=== PATIENT | female | born 1955 | race Caucasian/White ===

== ENCOUNTER 2017-06-27 14:35 | Emergency (ER) | payer OTHER ==
[~2017-06-27] VITALS: Ht 160 cm; Wt 52.6 kg
[~2017-06-27 14:35] MED LIST: IBUP-974 PO
[2017-06-27 14:41] VITALS: BP 142/97
--- NOTE | 2017-06-27 14:48 | NUR ---
PT AMBULATED TO CHAIR A WITH FAMILY.
--- NOTE | 2017-06-27 14:49 | NUR ---
61/F BIB FAMILY W/ C/O RIGHT FACIAL DROOP X 5 DAYS---DENIES HEADACHE, NO INJURY FACIAL ASYMMETRY, FOREHEAD WRINKLE ASYMMETRIC, TONGUE MIDLINE, AMBULATORY WITH STEADY GAIT, EQUAL LIBERAL ARTS AND HUMANITIES CHAIR/PUSHES BUE. PT STATES HX OF BACK PAIN, HTN RX WITH WATER PILL ?, ASA, FOSAMAX DENIES N/V/D; DENIES BLURRY VISION SKIN IS PINK/WARM/DRY; AAOX4 WITH EVEN AND STEADY GAIT; LUNGS CLEAR BL; HR EVEN AND REGULAR; PT DENIES ANY FEVER, CP, SOB, OR COUGH AT THIS TIME; PATIENT STATES PAIN OF 0/10 AT THIS TIME.
--- NOTE | 2017-06-27 14:50 | NUR ---
Patient being evaluated by dR. SABA at [facility].
--- NOTE | 2017-06-27 15:11 | NUR ---
PT TAKEN TO CT FOR CT HEAD IN WHEEL CHAIR BY NEUROLOGY HOSPITALIST.
--- NOTE | 2017-06-27 15:22 | NUR ---
PT CAME BACK FROM CT. SITTING IN CHAIR.
--- NOTE | 2017-06-27 15:29 | NUR ---
PT REQUESTED FOR WATER. NOTIFIED MD SABA. OKAY TO GIVE WATER. PT ABLE TO DRINK WATER WITHOUT ASPIRATION. FRIEND WITH PT.
[2017-06-27] MEDS ORDERED: predniSONE 20 MG TAB PO ONE (15:40)
[2017-06-27 15:48] VITALS: BP 132/88
--- NOTE | 2017-06-27 15:48 | NUR ---
Patient discharged with BP 132/88 ;DENIES AGARWAL OR DIZINESS AT THIS TIME; MADE AWARE. Written and verbal after care instructions given and explained. Patient alert, oriented and verbalized understanding of instructions. Ambulatory with steady gait. All questions addressed prior to discharge. ID band removed. Patient advised to follow up with PMD. Rx of PREDNISONE given. Patient educated on indication of medication including possible reaction and side effects. Opportunity to ask questions provided and answered.
== END 2017-06-27 15:48 | disposition home or self-care (01) ==
LOC: MED 14:35
DX: G51.0 Bell's palsy (principal); F17.210 Nicotine dependence, cigarettes, uncomplicated; Z71.6 Tobacco abuse counseling; I10 Essential (primary) hypertension; Z88.0 Allergy status to penicillin
CPT/HCPCS: 70450; 99284; J7512

== ENCOUNTER 2018-10-22 17:40 | Emergency (ER) | payer OTHER ==
[~2018-10-22] VITALS: Ht 162.6 cm; Wt 55.1 kg
[2018-10-22 17:52] VITALS: BP 125/73
--- NOTE | 2018-10-22 17:59 | NUR ---
WAIT AT [facility]. S. AAOX4.
--- NOTE | 2018-10-22 18:05 | NUR ---
Patient taken to XRAY via wheelchair by tech.
--- NOTE | 2018-10-22 18:48 | NUR ---
PT AMBULATED TO BED 11.
--- NOTE | 2018-10-22 18:53 | NUR ---
BIB FRIEND c/o lac wound right hand s/p cut by a piece of glass. BLEEDING CONTROLLED. LAST TDAP 2 YEARS AGO. med hx: HTN, HIGH CHOLESTEROL.PATIENT POSITIONED FOR COMFORT; HOB ELEVATED; BEDRAILS UP X1; BED DOWN. ER MD MADE AWARE OF PT STATUS.
--- NOTE | 2018-10-22 19:13 | NUR ---
Assumed care of pt. VSS. pt complaining of throbbing pain level 9/10 with controlled bleeding to laceration on right pinky. ERMD notified.
--- NOTE | 2018-10-22 19:26 | NUR ---
ERMD AT BEDSIDE
[2018-10-22] MEDS ORDERED: LIDOCAINE 1% 500 MG/50 ML VIAL INJ SCH (19:35)
[2018-10-22] MEDS ORDERED: KETOROLAC 60 MG/2 ML VIAL IM ONE (19:35)
[2018-10-22] MEDS ORDERED: LIDOCAINE MPF 1% 5mL VIAL INJ ONE ×2 (19:40)
[2018-10-22] MEDS ORDERED: LIDOCAINE MPF 1% - 5 mL VIAL 10 ML ONE (19:50)
[2018-10-22] MEDS ORDERED: NEOMYCIN/POLYMYXIN/BACITRACIN 0.9 GM/1 PKT TP ONE (20:15)
--- NOTE | 2018-10-22 20:25 | NUR ---
BACITRACIN AND A NON ADHESIVE GAUZE PAD WAS PLACED ON PTS WOUND ON HER LEFT HAND AND THEN WRAPPED IN A ROLL GAUZE
--- NOTE | 2018-10-22 20:25 | NUR ---
Patient discharged with v/s stable. Written and verbal after care instructions given and explained. Patient alert, oriented and verbalized understanding of instructions. Ambulatory with steady gait. All questions addressed prior to discharge. ID band removed. Patient advised to follow up with PMD. Rx of Bactrim and motrin given. Patient educated on indication of medication including possible reaction and side effects. Opportunity to ask questions provided and answered.
== END 2018-10-22 20:25 | disposition home or self-care (01) ==
LOC: MED 17:40
DX: S61.411A Laceration without foreign body of right hand, initial encounter (principal); I10 Essential (primary) hypertension; E78.00 Pure hypercholesterolemia, unspecified; Z88.0 Allergy status to penicillin; Z79.1 Long term (current) use of non-steroidal anti-inflammatories (NSAID); W25.XXXA Contact with sharp glass, initial encounter; Y93.89 Activity, other specified; Y92.090 Kitchen in other non-institutional residence as the place of occurrence of the external cause; Y99.8 Other external cause status
CPT/HCPCS: 12001; 73130; 96372; 99284; J1885; J2001

== ENCOUNTER 2020-08-26 16:06 | Emergency (ER) | payer OTHER ==
[~2020-08-26] VITALS: Ht 154.9 cm; Wt 55.3 kg
[2020-08-26 16:09] VITALS: BP 156/84
--- NOTE | 2020-08-26 16:15 | NUR ---
PT AMBULATED TO BED 11.
--- NOTE | 2020-08-26 16:20 | NUR ---
65 Y/O F BIB FROM HOME, C/O BILATERAL HAND PAIN, BURNING SENSATION FOR 1 MO THAT IS NOW RADIATING TO HER TOES. UNABLE TO FLEX OR EXTEND HAND OR DIGITS DUE TO PAIN. PT STATES SHE WAS AT [facility] FOR THE SAME REASON AND LEFT AMA BECAUSE THEY TOOK HOURS. PT STATES SHE HAS 10/10 PAIN, WTIH SWELLING AND REDNESS. TOOK EXCEDRIN 2 TAB PO IN THE AM AND ALEVE 2 PO THIS AFTERNOON. PT A&OX4 AMBULATES WITH STEADY GAIT. DENIES COUGH, SOB, FEVERS, CHEST PAIN, N/V/D. PMH: HTN ALLERGY: PENICILLIN (SWELLING IN THE THROAT)
[2020-08-26] MEDS ORDERED: GABA-636 PO (17:14)
[2020-08-26] MEDS: GABAPENTIN 300 MG CAP PO ONE (17:18)
[2020-08-26 17:26] LABS: BASOPHILS # (AUTO) 0.1 K/uL (0.00-0.22); BASOPHILS % (AUTO) 1.1 % (0.0-2.0); EOSINOPHILS # (AUTO) 0.1 K/uL (0-0.4); EOSINOPHILS % (AUTO) 1.2 % (0.0-4.0); HEMATOCRIT 41.5 % (36-48); HEMOGLOBIN 13.8 g/dL (12.0-16.0); LYMPHOCYTES # (AUTO) 4.5 K/uL (2.5-16.5); LYMPHOCYTES % (AUTO) 49.8 % (20.5-51.1); MEAN CORPUSCULAR HEMOGLOBIN 44 pg (27-31); MEAN CORPUSCULAR HGB CONC 33 g/dL (33-37); MEAN CORPUSCULAR VOLUME 133.3 fL (80-94); MONOCYTES # (AUTO) 0.5 K/uL (0.8-1.0); MONOCYTES % (AUTO) 5.5 % (1.7-9.3); NEUTROPHILS # (AUTO) 3.9 K/uL (1.8-7.7); NEUTROPHILS % (AUTO) 42.4 % (42.2-75.2); PLATELET COUNT (AUTO) 633 K/uL (140-450); RED BLOOD CELL COUNT(AUTO) 3.11 MIL/uL (4.20-5.40); RED CELL DISTRIBUTION WIDTH 17.1 % (11.6-13.7); WHITE BLOOD COUNT (AUTO) 9.1 K/uL (4.8-10.8)
[2020-08-26 17:40] LABS: CARBON DIOXIDE 24.3 mmol/L (21-32); CREATININE 0.5 mg/dL (0.6-1.3); POTASSIUM 3.3 mmol/L (3.5-5.1)
[2020-08-26] MEDS ORDERED: THIA50TA39 PO ×2 (18:26→18:44)
[2020-08-26 18:41] VITALS: BP 156/84
--- NOTE | 2020-08-26 18:41 | NUR ---
Patient discharged with v/s stable. Written and verbal after care instructions given and explained. Patient alert, oriented and verbalized understanding of instructions. Ambulatory with steady gait. All questions addressed prior to discharge. ID band removed. Patient advised to follow up with PMD. Rx of GABAPENTIN, THIAMINE HCL given. Patient educated on indication of medication including possible reaction and side effects. Opportunity to ask questions provided and answered.
== END 2020-08-26 18:41 | disposition home or self-care (01) ==
LOC: MED 16:06
DX: G62.9 Polyneuropathy, unspecified (principal); I10 Essential (primary) hypertension; Z88.0 Allergy status to penicillin; Z79.899 Other long term (current) drug therapy
CPT/HCPCS: 36415; 80048; 84443; 85025; 99283

== ENCOUNTER 2022-02-05 14:52 | Emergency (ER) | payer OTHER ==
[~2022-02-05] VITALS: Ht 157.5 cm; Wt 56.7 kg
[~2022-02-05 14:52] MED LIST changes: +GABA-636 PO; +THIA50TA39 PO
[2022-02-05 15:15] VITALS: BP 112/72
--- NOTE | 2022-02-05 15:26 | NUR ---
Assited pt to bed 04 on wheelchair with daughter at bedside. RN made aware of condition.
[2022-02-05] MEDS ORDERED: MECLIZINE 25 MG TAB PO ONE (15:45)
--- NOTE | 2022-02-05 16:20 | NUR ---
PT RECEIVED, CARE ASSUMED. PT A/OX4. PT BIB DAUGHTER FOR EVALUATION OF GEN WEAKNESS. PT IN BED AWAITING TO BE SEEN BY
[2022-02-05 16:40] LABS: BASOPHILS # (AUTO) 0.1 K/uL (0.00-0.22); BASOPHILS % (AUTO) 1.3 % (0.0-2.0); EOSINOPHILS # (AUTO) 0.1 K/uL (0-0.4); EOSINOPHILS % (AUTO) 1.6 % (0.0-4.0); HEMATOCRIT 36.2 % (36-48); HEMOGLOBIN 12.1 g/dL (12.0-16.0); LYMPHOCYTES # (AUTO) 3.4 K/uL (2.5-16.5); LYMPHOCYTES % (AUTO) 37.7 % (20.5-51.1); MEAN CORPUSCULAR HEMOGLOBIN 39 pg (27-31); MEAN CORPUSCULAR HGB CONC 34 g/dL (33-37); MEAN CORPUSCULAR VOLUME 117.6 fL (80-94); MONOCYTES # (AUTO) 0.8 K/uL (0.8-1.0); NEUTROPHILS # (AUTO) 4.6 K/uL (1.8-7.7); NEUTROPHILS % (AUTO) 50.4 % (42.2-75.2); PLATELET COUNT (AUTO) 307 K/uL (140-450); RED BLOOD CELL COUNT(AUTO) 3.08 MIL/uL (4.20-5.40); WHITE BLOOD COUNT (AUTO) 9.1 K/uL (4.8-10.8)
[2022-02-05 16:54] LABS: ANION GAP 12.9 (8-16); CARBON DIOXIDE 28.3 mmol/L (21-32); CREATININE 0.4 mg/dL (0.6-1.3); POTASSIUM 3.2 mmol/L (3.5-5.1)
[2022-02-05] MEDS ORDERED: CIPR500T4 PO (17:43)
[2022-02-05] MEDS ORDERED: MECL-303 PO (17:43)
[2022-02-05] MEDS ORDERED: IBUP-2213 PO (17:43)
[2022-02-05 17:52] VITALS: BP 135/75
--- NOTE | 2022-02-05 17:54 | NUR ---
Patient discharged with v/s stable. Written and verbal after care instructions given and explained. Patient alert, oriented and verbalized understanding of instructions. Wheel Chair Assisted with to car. All questions addressed prior to discharge. ID band removed. Patient advised to follow up with PMD. Rx of CIPRO, ANTIVERT given. Patient educated on indication of medication including possible reaction and side effects. Opportunity to ask questions provided and answered.
== END 2022-02-05 17:54 | disposition home or self-care (01) ==
LOC: MED 14:52
DX: N39.0 Urinary tract infection, site not specified (principal); R53.1 Weakness; M54.50 Low back pain, unspecified; I10 Essential (primary) hypertension; Z79.899 Other long term (current) drug therapy; Z98.890 Other specified postprocedural states
CPT/HCPCS: 36415; 70450; 72192; 80048; 85025; 99284; J8597

== ENCOUNTER 2022-07-04 14:19 | Emergency (ER) | payer OTHER ==
[~2022-07-04] VITALS: Ht 160 cm; Wt 44.9 kg
[~2022-07-04 14:19] MED LIST changes: +CIPR500T4 PO; +IBUP-2213 PO; +MECL-303 PO
[2022-07-04 14:30] VITALS: BP 101/50
--- NOTE | 2022-07-04 14:30 | NUR ---
BIB WHEELCHAIR TO ER BED 10
[2022-07-04] MEDS ORDERED: IBUPROFEN 600 MG TAB PO ONE (14:55)
[2022-07-04] MEDS ORDERED: CLIN300C52 PO (16:18)
[2022-07-04] MEDS ORDERED: LOTC TP (16:18)
[2022-07-04] MEDS ORDERED: IBUP-2213 PO (16:18)
--- NOTE | 2022-07-04 16:37 | NUR ---
Patient discharged with v/s stable. Written and verbal after care instructions given and explained. Patient alert, oriented and verbalized understanding of instructions. Ambulatory with steady gait. All questions addressed prior to discharge. ID band removed. Patient advised to follow up with PMD. Rx of CLINDAMYCIN given. Patient educated on indication of medication including possible reaction and side effects. Opportunity to ask questions provided and answered.
== END 2022-07-04 16:37 | disposition home or self-care (01) ==
LOC: MED 14:19
DX: S82.031A Displaced transverse fracture of right patella, initial encounter for closed fracture (principal); L03.115 Cellulitis of right lower limb; B35.4 Tinea corporis; I10 Essential (primary) hypertension; Z88.0 Allergy status to penicillin; Z79.899 Other long term (current) drug therapy; W18.30XA Fall on same level, unspecified, initial encounter; Y93.89 Activity, other specified; Y92.89 Other specified places as the place of occurrence of the external cause; Y99.8 Other external cause status
CPT/HCPCS: 29505; 73562; 73590; 73660; 99284; Q0092